=== PATIENT | female | born 1970 | race Caucasian/White ===

== ENCOUNTER → 2025-01-06 | Outpatient (CLI) | payer BC, SELFPAY ==
--- NOTE | 2025-01-06 15:38 | XR_ITS ---
Examination: Bilateral knees, standing AP single view Technique: Standing AP bilateral knees, standing single view Exam date and time: January 06, 2025 1616 hours Comparison January 06, 2025 INDICATIONS: Left knee pain beginning 3 months ago. FINDINGS: Moderate osteopenia Mild narrowing medial joint space left knee No fracture or dislocation Faint meniscus calcification IMPRESSION: Mild narrowing medial joint space left knee
--- NOTE | 2025-01-06 15:38 | XR_ITS ---
Examination: Knee, left , 3 views Technique: Knee AP, lateral, oblique 3 views Date and time of exam: January 06, 2025 1616 hours INDICATIONS: Left knee pain beginning 3 months ago. FINDINGS: Moderate osteopenia Mild narrowing medial joint space Minimal narrowing patellofemoral joint No fracture or dislocation No opaque foreign body IMPRESSION: Mild narrowing medial joint space Minimal narrowing patellofemoral joint
== END | disposition home or self-care (01) ==
PROVIDERS: PCP Specialist; Referring Provider Specialist; Visit Provider Specialist
DX: M25.862 Other specified joint disorders, left knee (principal)
CPT/HCPCS: 73562; 73565

== ENCOUNTER → 2025-04-22 | Outpatient (CLI) | payer BC, SELFPAY ==
--- NOTE | 2025-04-22 15:20 | XR_ITS ---
Examination: Abdomen AP single view Technique: AP portable supine abdomen, single view Exam date and time: April 22, 2025 1521 hours INDICATIONS: Abdominal pain one month. FINDINGS: Large amounts of stool throughout the colon No obstruction No free air Lung bases clear IMPRESSION: Large amounts of stool throughout the colon
== END | disposition home or self-care (01) ==
LOC: CDIM 15:16
PROVIDERS: PCP Specialist; Referring Provider Specialist; Visit Provider Specialist
DX: K59.04 Chronic idiopathic constipation (principal)
CPT/HCPCS: 74018

== ENCOUNTER → 2025-05-13 | Outpatient (CLI) | payer BC, SELFPAY ==
--- NOTE | 2025-05-13 14:52 | XR_ITS ---
Examination: PA lateral chest 2 views TECHNIQUE: AP lateral chest 2 views Date and time: May 13, 2025 1500 hours Comparison July 05, 2024 INDICATIONS: Asthma diagnosis FINDINGS: Moderate hyperexpansion Normal heart size No pneumonia or pulmonary edema IMPRESSION: Moderate hyperexpansion
[2025-05-13 16:15] LABS: Basophils % (Auto) 1 % (0-2.5); Eosinophils # (Auto) 0.1 Thou/mm3 (0.0-0.5); Eosinophils % (Auto) 3 % (0-10); Hematocrit 39.5 % (36.0-46.0); Hemoglobin 13.1 g/dL (12.0-16.0); Immature Granulocytes % (Auto) 0 % (0-0); Immature Granulocytes Auto 0.01 Thou/mm3 (0.00-0.00); Lymphocytes # (Auto) 1.4 Thou/mm3 (1.0-4.8); Lymphocytes % (Auto) 29 % (10-50); Mean Corpuscular HGB Conc 33.2 g/dl (31.0-37.0); Mean Corpuscular Volume 84 fL (80-100); Monocytes # (Auto) 0.4 Thou/mm3 (0.0-0.8); Monocytes % (Auto) 8 % (0-12); Neutrophils # (Auto) 2.8 Thou/mm3 (1.8-7.7); Neutrophils % (Auto) 60 % (37-80); Nucleated Red Blood Cell % 0 /100 WBC (0); Platelet Count 285 Thou/mm3 (140-440); Red Blood Count 4.68 Miln/mm3 (4.00-5.20); White Blood Count 4.8 Thou/mm3 (3.6-11.0)
[2025-05-13 16:25] LABS: Parathyroid Hormone Intact 99.9 pg/ml (18.5-88.0)
[2025-05-13 16:29] LABS: Follicle Stimulating Hormone 50.45 mIU/mL (See Note); Vitamin D 25 Hydroxy Total 41.2 ng/mL (7.3-40.2)
[2025-05-13 16:40] LABS: Alanine Aminotransferase 11 U/L (10-49); Albumin, Serum 4.6 gm/dL (3.5-5.0); Alkaline Phosphatase 89 U/L (46-116); Anion Gap 9 (7-16); Aspartate Amino Transferase 15 U/L (0-34); BUN/Creatinine Ratio 16 Ratio (12-20); Bilirubin,Total 0.3 mg/dL (0.3-1.2); Blood Urea Nitrogen 16 mg/dL (9-23); Calcium 9.2 mg/dL (8.3-10.6); Calcium (Corrected) 9.2 mg/dL (8.5-10.1); Carbon Dioxide 26.4 mMol/L (20.0-31.0); Chloride 107 mMol/L (98-107); Free T4 (Free Thyroxine) 1.46 ng/dL (0.89-1.76); Globulin 2.3 gm/dL (2.3-3.5); Glucose 116 mg/dL (74-106); Osmolality,Calculated 285 (275-295); Phosphorous 3.5 mg/dL (2.4-5.1); Potassium 3.8 mMol/L (3.4-5.1); Sodium 142 mMol/L (136-145); Thyroid Stimulating Hormone 0.46 uIU/mL (0.55-4.78); Total Protein 6.9 gm/dL (5.7-8.2); eGFR > 60 See Note
[2025-05-25 06:17] LABS: Estradiol, Ultrasensitive* 27 pg/mL; Luteinizing Hormone* 35.7 mIU/mL; Sex Hormone Binding Globulin* 171 nmol/L (17-124); Testosterone, Free,Dialysis 0.7 pg/mL (0.1-6.4); Testosterone, Total, Dialysis 11 ng/dL (2-45); Thyroglobulin Antibodies* <1 IU/mL (< OR = 1); Vitamin D,1,25 (OH)2,Total 64 pg/mL (18-72); Vitamin D2, 1,25 (OH)2 <8 pg/mL; Vitamin D3, 1,25 (OH)2 64 pg/mL
== END | disposition home or self-care (01) ==
LOC: CDIM 14:48 → COPL 15:07
PROVIDERS: Internal Medicine; PCP Specialist; Referring Provider Nurse Practitioner Family; Visit Provider Radiology Diagnostic Radiology
DX: J98.4 Other disorders of lung (principal); C73 Malignant neoplasm of thyroid gland; E55.9 Vitamin D deficiency, unspecified; E21.3 Hyperparathyroidism, unspecified; Z78.0 Asymptomatic menopausal state
CPT/HCPCS: 36415; 71046; 80053; 82306; 82652; 82670; 83001; 83002; 83970; 84100; 84270; 84402; 84403; 84439; 84443; 85025; 86800

== ENCOUNTER 2025-05-31 07:40 | Emergency (ER) | payer BC, SELFPAY ==
[2025-05-31 07:42] VITALS: BMI 21.4
[2025-05-31 08:15] VITALS: BP 110/75; PULSE 92; RESP 18; TEMP 36.8; O2SAT 98
--- NOTE | 2025-05-31 08:18 | PD.EDALLER ---
ED Allergic Reaction RME/HPI General Chief complaint: Allergic Reaction Stated complaint: STRUNG BY BEE YESTERDAY; ALLERGIC TO BEES Time Seen by Provider: 05/31/25 08:17 Arrival date/time: 05/31/25 07:40 55-year-old female with medical history significant for allergy to bee stings presents for concerns that she was stung by a bee yesterday right upper arm patient reports erythema to the right upper arm and rash to the right lower leg with itching patient reports no difficulty breathing or difficulty swallowing Limitations: no limitations Related Data Home Medications ?Medication ?Instructions ?Recorded ?Confirmed albuterol sulfate 90 mcg/actuation 2 puff inhalation Q4-6HRPRN PRN 05/03/14 05/21/23 aerosol inhaler (Proventil HFA) WHEEZING #0 puffs clonazepam 0.5 mg tablet (Klonopin) 0.5 mg PO QDAY PRN Anxiety #0 tabs 05/03/14 05/21/23 tramadol 50 mg tablet (Ultram) 50 mg PO Q4HR PRN PAIN #0 tabs 05/03/14 05/21/23 levothyroxine 112 mcg capsule 100 mcg PO QDAY ##0 08/27/17 05/21/23 (Tirosint) famotidine 20 mg tablet 20 mg PO QDAY 11/24/20 05/21/23 estradiol 1 mg/gram (0.1 %) 1 mg topical DAILY 04/24/23 05/21/23 transdermal gel packet omeprazole 40 mg capsule,delayed 40 mg PO QDAY 04/24/23 05/21/23 release Previous Rx's ?Medication ?Instructions ?Recorded ondansetron 4 mg disintegrating 4 mg PO Q8H PRN nausea and 02/25/21 tablet vomiting #20 tabs fluticasone propionate 50 1 spray intranasal QDAY PRN nasal 04/25/23 mcg/actuation nasal congestion #16 grams spray,suspension (Flonase Allergy Relief) ibuprofen 600 mg tablet 600 mg PO Q8H PRN pain #20 tabs 06/10/23 hydrocodone 5 mg-acetaminophen 325 1 tab PO BID PRN pain #10 tabs 05/31/24 mg tablet ibuprofen 600 mg tablet 600 mg PO Q6H #30 tabs 05/31/24 albuterol sulfate 2.5 mg/3 mL 2.5 mg (3 mL) inhalation Q4H PRN 06/30/24 (0.083 %) solution for nebulization shortness of breath #90 mL benzonatate 100 mg capsule 100 mg PO TID #14 caps 06/30/24 diphenhydramine HCl 25 mg capsule 25 mg PO Q8H PRN allergic symptoms 05/31/25 (Benadryl) #30 caps prednisone 10 mg tablet 30 mg (3 x 10 mg) PO BID 3 days 05/31/25 #18 tabs Allergies Allergy/AdvReac Type Severity Reaction Status Date / Time bee venom protein (honey bee) Allergy Severe Hives Verified 05/31/25 07:43 ciprofloxacin Allergy Severe MANIC Verified 05/31/25 07:43 REACTION,ITCHING garlic Allergy Severe Hives Verified 05/31/25 07:43 onion Allergy Severe Hives Verified 05/31/25 07:43 pepper (genus Capsicum) Allergy Severe Hives Verified 05/31/25 07:43 adhesive tape Allergy Rash Verified 05/31/25 07:43 Review of Systems Review of Systems Systems Reviewed: All systems reviewed, normal except as documented Constitutional Constitutional: Reports system reviewed and no additional complaints, except as documented, Denies fever(s) and Denies headache(s) Eyes Eyes: Reports system reviewed and no additional complaints, except as documented and Denies blurry vision ENT Ears, Nose, Mouth, and Throat: Reports system reviewed and no additional complaints, except as documented, Denies headache(s), Denies nasal congestion and Denies nasal discharge Cardiovascular Cardiovascular: Reports system reviewed and no additional complaints, except as documented, Denies chest pain and Denies dyspnea Respiratory Respiratory: Reports system reviewed and no additional complaints, except as documented, Denies chest congestion, Denies cough and Denies dyspnea Gastrointestinal Gastrointestinal: Reports system reviewed and no additional complaints, except as documented and Denies abdominal pain Integumentary/Breasts Skin/Breast: Reports system reviewed and no additional complaints, except as documented, Reports erythema, Reports pruritus and Reports rash Neurologic Neurologic: Reports system reviewed and no additional complaints, except as documented, Reports as per HPI and Denies headache(s) Past Medical History Past Medical History NEUROLOGIC: Negative Seizures CARDIAC: Negative Cardiac Disorders or Congestive Heart Failure RESPIRATORY: Positive Asthma; Negative Chronic Obstructive Pulmonary Disease (COPD) GENITOURINARY: Negative Renal Disease MUSCULOSKELETAL: Positive Carpal Tunnel Syndrome ENDOCRINE: Positive Hypothyroidism and Thyroid Cancer; Negative Diabetes Mellitus Type 1 or Diabetes Mellitus Type 2 HEMATOLOGIC: Negative Sickle Cell Disease OTHER HISTORY: Negative Blood Transfusions, Blood Transfusion Reaction or Anesthesia Reactions Surgical History SURGICAL: Positive Thyroidectomy, Nose Surgery and Hysterectomy Social History SMOKING STATUS: Never smoker ED Exam General Limitations: Present no limitations General appearance: Present alert and in no apparent distress Head Head exam: Present atraumatic, normocephalic and normal inspection Eye Eye exam: Present normal appearance, PERRL and EOMI; Absent conjunctival injection ENT ENT exam: Present normal exam, normal oropharynx and mucous membranes moist Neck Neck exam: Present normal inspection, full ROM and trachea midline Chest Chest inspection: Present normal inspection and symmetric chest wall rise Respiratory Respiratory exam: Present normal lung sounds bilaterally Cardiovascular Cardiovascular exam: Present regular rate, normal rhythm and normal heart sounds Abdominal Exam Abdominal exam: Present soft and normal bowel sounds Extremities Exam Extremities exam: Present normal inspection and full ROM Back Exam Back exam: Present normal inspection and full ROM Neurological Exam Neurological exam: Present alert, oriented X3, CN II-XII intact, normal gait and reflexes normal; Absent motor sensory deficit Psychiatric Psychiatric exam: Present normal affect and normal mood Skin Skin exam: Present warm, dry and erythema; Absent rash Course Quality Measures none Orders Category Date Time Status Dexamethasone Inj [Decadron Inj] Med 05/31/25 08:17 Discontinued 10 mg PO X1 ONE DiphenhydrAMINE [Benadryl] Med 05/31/25 08:17 Discontinued 25 mg PO X1 ONE Famotidine [Pepcid] Med 05/31/25 08:17 Discontinued 40 mg PO X1 ONE Vital Signs Vital signs: Vital Signs Temperature 98.2 F 05/31/25 08:15 Pulse Rate 92 05/31/25 08:15 Respiratory Rate 18 05/31/25 08:15 Blood Pressure 110/75 05/31/25 08:15 Pulse Oximetry (%) 98 05/31/25 08:15 Oxygen Delivery Method Room Air 05/31/25 08:15 O2 saturation 98% room air within normal limits Allergic Reaction MDM Narrative MDM Narrative:: 55-year-old female with medical history significant for allergy to bee stings presents for concerns that she was stung by a bee yesterday right upper arm patient reports erythema to the right upper arm and rash to the right lower leg with itching patient reports no difficulty breathing or difficulty swallowing On exam patient well-appearing patient does not appear ill or toxic in no acute distress Patient has no evidence of anaphylaxis Patient medicated here discharged with meds Patient discharged home in no distress to follow-up with primary care doctor in the next 24 to 48 hours and for any worsening symptoms to return to the ER immediately Patient data External records reviewed:: [facility] previous records Clinical information provided by:: patient Social determinants that could affect healthcare access:: none Patient has the following chronic illnesses:: None How is presenting disease/condition affected by chronic disease/condition?: no chronic disease Evaluation data The following diagnostics were reviewed and interpreted by me:: other (specify) Lab and/or radiology exams considered but not ordered:: Considered not ordered Interpretation Summary: N/A Medications / Prescriptions Medications or Prescriptions considered but not ordered:: Given Medication administrations:: Medication Administration History Discontinued Medications Dexamethasone Sodium Phosphate (Dexamethasone Sod Phos Inj 10 Mg/Ml Vial) 10 mg PO X1 ONE Stop: 05/31/25 08:18 Last Admin: 05/31/25 08:28 Dose: 10 mg Documented By: MICK Diphenhydramine HCl (Diphenhydramine 25 Mg Capsule) 25 mg PO X1 ONE Stop: 05/31/25 08:18 Last Admin: 05/31/25 08:28 Dose: 25 mg Documented By: LP Famotidine (Famotidine 20 Mg Tablet) 40 mg PO X1 ONE Stop: 05/31/25 08:18 Last Admin: 05/31/25 08:28 Dose: 40 mg Documented By: LP Given Consultations Consultation(s) initiated? (list below): No Diagnosis Differential Diagnosis allergic reaction: anaphylaxis, allergic reaction and urticaria Most likely diagnosis given after review of the tests above:: Allergic reaction Admission Indicated Admission indicated?: not indicated Admission Request Was there a request for admission?: No Disposition Plan Disposition Plan: Discharge Discharge Attestation Discharge Attestation: The patient and all family members were given an opportunity to ask questions and understood the discharge instructions. Discharge instructions specifically effects, indications for sooner follow up or return to the emergency department, and the expected course of current diagnosis. Patient condition: Stable Discharge Plan Plan Patient Disposition: HOME (Self Care) Discharge Disposition comment: Stable Prescriptions/Referrals Prescriptions/Med Rec: New prednisone 10 mg tablet 30 mg PO BID 3 Days Qty: 18 0RF diphenhydramine HCl [Benadryl] 25 mg capsule 25 mg PO Q8H PRN (Reason: allergic symptoms) Qty: 30 0RF No Action silver nitrate applicators 75-25 % stick 3 ea topical ONCE Qty: 1 0RF clonazepam [Klonopin] 0.5 MG tablet 0.5 mg PO QDAY PRN (Reason: Anxiety) Qty: 0 tramadol [Ultram] 50 MG tablet 50 mg PO Q4HR PRN (Reason: PAIN) Qty: 0 Patient Comments: FOR PAIN, NOT TO EXCEED 8 TABS IN 24 HRS albuterol sulfate [Proventil HFA] 6.7 GM HFA aerosol inhaler 2 puff Inhalation Q4-6HRPRN PRN (Reason: WHEEZING) Qty: 0 levothyroxine [Tirosint] 112 MCG capsule 100 mcg PO QDAY Qty: 0 famotidine 20 mg Tablet 20 mg PO QDAY ondansetron 4 mg tablet,disintegrating 4 mg PO Q8H PRN (Reason: nausea and vomiting) Qty: 20 0RF estradiol 1 mg/gram (0.1 %) Gel In Packet 1 mg TOPICAL DAILY omeprazole 40 mg Capsule,Delayed Release(Dr/Ec) 40 mg PO QDAY fluticasone propionate [Flonase Allergy Relief] 50 mcg/actuation spray,suspension 1 spray intranasal QDAY PRN (Reason: nasal congestion) Qty: 16 0RF Rx Instructions: administer into each nostril ibuprofen 600 mg tablet 600 mg PO Q8H PRN (Reason: pain) Qty: 20 0RF hydrocodone-acetaminophen 5-325 mg tablet 1 tab PO BID MDD 10 PRN (Reason: pain) Qty: 10 0RF ibuprofen 600 mg tablet 600 mg PO Q6H Qty: 30 0RF benzonatate 100 mg capsule 100 mg PO TID Qty: 14 0RF albuterol sulfate 2.5 mg /3 mL (0.083 %) solution for nebulization 2.5 mg inhalation Q4H PRN (Reason: shortness of breath) Qty: 90 0RF Problem List Clinical Impression: Allergic reaction to bee sting Patient/Caregiver Discharge Instructions Education Materials: First Aid: Poisoning Additional Instructions: Please follow up with your primary care doctor in the next 24-48hrs for any worsening symptoms return here immediately Print Language: Sinhala Stand Alone Forms: [employer] Award Info., Work/School Release, Patient Portal Info Letter PA/INSTRUMENT SPECIALIST Supervising Physician PA/INSTRUMENT SPECIALIST Supervising Physician: Dr. Evangelista
[2025-05-31] MEDS: DEXAMETHASONE SOD PHOS INJ 10 MG/ML VIAL PO (08:28)
[2025-05-31] MEDS: FAMOTIDINE 20 MG TABLET 40 MG PO (08:28)
== END 2025-05-31 08:35 | disposition home or self-care (01) ==
LOC: SERX 09:02
PROVIDERS: Emergency Provider Emergency Medicine
DX: T63.441A Toxic effect of venom of bees, accidental (unintentional), initial encounter (principal)
CPT/HCPCS: 99283; J1100; A9270